=== PATIENT | female | born 1960 | race Hispanic/Latino ===

== ENCOUNTER 2017-08-14 08:36 | Emergency (ER) | payer BC ==
[2017-08-14 09:01] VITALS: TEMP 98; O2SAT 98
[2017-08-14] MEDS ORDERED: Sodium Chloride 0.9% 1,000 ML IV STA ×2 (09:02→10:29)
[2017-08-14 10:03] LABS: BASO # 0.02 K/mm3 (0.0-2.0); BASO % 0.2 % (0.0-3.0); EOS # 0.1 (0.0-0.7); EOS % 0.5 % (1.5-5.0); GRAN # 8.02 (1.4-6.5); GRAN % 77.2 % (50.0-68.0); HEMOGLOBIN 13.8 g/dL (12.0-16.0); LYMPH # 1.7 (1.2-3.4); LYMPH % 16.5 % (22.0-35.0); MEAN CELL VOLUME 85.4 fl (80.0-105.0); MEAN CORPUSCULAR HEMOGLOBIN 29.7 pg (25.0-35.0); MEAN CORPUSCULAR HGB CONC 34.8 g/dl (31.0-37.0); MEAN PLATELET VOLUME 10.9 fl (7.0-11.0); MONO # 0.6 (0.1-0.6); MONO % 5.6 % (1.0-6.0); RBC 4.65 10^6/uL (3.5-6.1); RED CELL DISTRIBUTION WIDTH 12.1 % (11.5-14.5); WHITE BLOOD COUNT 10.4 10^3/ul (4.5-11.0)
[2017-08-14 10:05] LABS: VENOUS BLOOD GAS BASE EXCESS -0.2 mmol/L (0.0-2.0); VENOUS BLOOD GAS PO2 83 mm/Hg (30-55); VENOUS BLOOD PH 7.39 (7.32-7.43)
--- NOTE | 2017-08-14 10:06 | ED PDOC ---
Arrival/HPI - General Chief Complaint: High Blood Sugar Time Seen by Provider: 08/14/17 08:57 Historian: Patient - History of Present Illness Narrative History of Present Illness (Text): 08/14/17 10:00 56 year old female, who presents to the emergency department complaining of elevated blood sugar since this morning. Patient reports one day ago she went to see her PMD for a routine check up and this morning she received a call about her elevated sugar levels. Patient is also complaining of polyuria and polydipsia. Patient denies chest pain, shortness of breath, headache, abdominal pain, dysruia, hematuria, or other complaints. Time/Duration: Prior to Arrival Symptom Onset: Sudden Symptom Course: Unchanged Context: Home Past Medical History - Provider Review Nursing Documentation Reviewed: Yes - Infectious Disease Hx of Infectious Diseases: None - Reproductive Menopause: Yes - Cardiac Hx Cardiac Disorders: No - Pulmonary Hx Respiratory Disorders: No - Neurological Hx Neurological Disorder: No - HEENT Other/Comment: rt eye trigian surgery - Renal Hx Renal Disorder: No - Hematological/Oncological Hx Blood Disorders: No - Musculoskeletal/Rheumatological Hx Musculoskeletal Disorders: No - Psychiatric Hx Substance Use: No - Anesthesia Hx Anesthesia: No Family/Social History - Physician Review Nursing Documentation Reviewed: Yes Family/Social History: Diabetes Smoking Status: Current Some Days Smoker Hx Alcohol Use: Yes Frequency of alcohol use: Socially Hx Substance Use: No Allergies/Home Meds Allergies/Adverse Reactions: Allergies No Known Allergies Allergy (Verified 08/14/17 09:01) Home Medications: Home Meds Medication Instructions Recorded Confirmed No Known Home Med 08/14/17 08/14/17 Review of Systems - Physician Review All systems were reviewed & negative as marked: Yes - Review of Systems Respiratory: absent: SOB Cardiovascular: absent: Chest Pain Gastrointestinal: absent: Abdominal Pain Endocrine: Polyuria, Polydipsia Hemo/Lymphatic: Other (elevated sugar) Physical Exam Vital Signs Reviewed: Yes Vital Signs Temp Pulse Resp BP Pulse Ox 08/14/17 12:47 98 F 62 18 161/81 H 98 08/14/17 10:37 78 18 146/72 98 08/14/17 08:54 98 F 58 L 16 136/89 98 Temperature: Afebrile Blood Pressure: Normal Pulse: Bradycardic Respiratory Rate: Normal Appearance: Positive for: Well-Appearing, Non-Toxic, Comfortable Pain Distress: None Mental Status: Positive for: Alert and Oriented X 3 - Systems Exam Head: Present: Atraumatic, Normocephalic Pupils: Present: PERRL Extroacular Muscles: Present: EOMI Conjunctiva: Present: Normal Respiratory/Chest: Present: Clear to Auscultation, Good Air Exchange. No: Respiratory Distress, Accessory Muscle Use, Wheezes, Rales, Retracting, Rhonchi , Tachypneic Cardiovascular: Present: Regular Rate and Rhythm, Normal S1, S2. No: Murmurs Abdomen: Present: Normal Bowel Sounds. No: Tenderness, Distention, Peritoneal Signs, Rebound, Guarding Neurological: Present: GCS=15, CN II-XII Intact, Speech Normal Skin: Present: Warm, Dry, Normal Color. No: Rashes Psychiatric: Present: Alert, Oriented x 3, Normal Insight, Normal Concentration Medical Decision Making ED Course and Treatment: 08/14/17 Impression: 56 year old female with unremarkable physical exam complaining of elevated sugar levels Plan: -- Labs -- Urinalysis -- Sodium Chloride -- Reassess and disposition Progress Notes: - Lab Interpretations Lab Results: 08/14/17 09:34 08/14/17 09:34 Lab Results 08/14/17 12:16: POC Glucose (mg/dL) 200 H 08/14/17 10:57: POC Glucose (mg/dL) 320 H 08/14/17 09:34: Sodium 136, Chloride 97 L, Potassium 4.4, Carbon Dioxide 24, Anion Gap 19, BUN 14, Creatinine 0.8, Est GFR ( Amer) > 60, Est GFR (Non- Af Amer) > 60, Random Glucose 464 H*, Calcium 9.2, Total Bilirubin 0.4, AST 38 H , ALT 40, Alkaline Phosphatase 130 H, Total Protein 7.5, Albumin 4.4, Globulin 3.0, Albumin/Globulin Ratio 1.5 08/14/17 09:34: pO2 83 H, VBG pH 7.39, VBG pCO2 41.0, VBG HCO3 24.8, VBG Total CO2 26.1, VBG O2 Sat (Calc) 98.1 H, VBG Base Excess -0.2 L, VBG Potassium 5.0, Sodium 131.0 L, Chloride 94.0 L, Glucose 501 H*, Lactate 3.4 H, FiO2 21.0, Venous Blood Potassium 5.0 08/14/17 09:34: WBC 10.4, RBC 4.65, Hgb 13.8, Hct 39.7, MCV 85.4, MCH 29.7, MCHC 34.8, RDW 12.1, Plt Count 262, MPV 10.9, Gran % 77.2 H, Lymph % (Auto) 16.5 L, Woodruff % (Auto) 5.6, Eos % (Auto) 0.5 L, Baso % (Auto) 0.2, Gran # 8.02 H , Lymph # (Auto) 1.7, Woodruff # (Auto) 0.6, Eos # (Auto) 0.1, Baso # (Auto) 0.02 08/14/17 09:04: POC Glucose (mg/dL) 478 H* I have reviewed the lab results: Yes - Medication Orders Current Medication Orders: Discontinued Medications Sodium Chloride (Sodium Chloride 0.9%) 1,000 mls @ 999 mls/hr IV .Q1H1M STA Stop: 08/14/17 10:02 Last Admin: 08/14/17 09:50 Dose: 999 mls/hr eMAR Start Stop Document 08/14/17 09:50 [facility] (Rec: 08/14/17 09:50 [facility] [id number]) Intravenous Solution Start Date 08/14/17 Start Time 09:50 End Date 08/14/17 End time 10:50 Total Infusion Time 60 Sodium Chloride (Sodium Chloride 0.9%) 1,000 mls @ 999 mls/hr IV .Q1H1M STA Stop: 08/14/17 11:29 Last Admin: 08/14/17 11:10 Dose: 999 mls/hr eMAR Start Stop Document 08/14/17 11:10 [facility] (Rec: 08/14/17 11:10 [facility] [id number]) Intravenous Solution Start Date 08/14/17 Start Time 11:10 End Date 08/14/17 End time 12:10 Total Infusion Time 60 Insulin Human Regular (Humulin R) 4 units IVP STAT STA Stop: 08/14/17 10:29 Last Admin: 08/14/17 11:04 Dose: 4 units MAR Blood Glucose Document 08/14/17 11:04 [facility] (Rec: 08/14/17 11:04 [facility] [id number]) Blood Glucose Finger Stick Blood Glucose (70-120) 320 IVP Administration Document 08/14/17 11:04 [facility] (Rec: 08/14/17 11:04 [facility] [id number]) Charges for Administration # of IVP Administrations 1 - Scribe Statement The provider has reviewed the documentation as recorded by the Scribe Brie Salazar Provider Scribe Attestation: All medical record entries made by the Scribe were at my direction and personally dictated by me. I have reviewed the chart and agree that the record accurately reflects my personal performance of the history, physical exam, medical decision making, and the department course for this patient. I have also personally directed, reviewed, and agree with the discharge instructions and disposition. Disposition/Present on Arrival - Present on Arrival Any Indicators Present on Arrival: Yes History of DVT/PE: No History of Uncontrolled Diabetes: No Urinary Catheter: No History of Decub. Ulcer: No History Surgical Site Infection Following: None - Disposition Have Diagnosis and Disposition been Completed?: Yes Diagnosis: New onset type 2 diabetes mellitus Disposition: HOME/ ROUTINE Disposition Time: 10:30 Condition: IMPROVED Discharge Instructions (ExitCare): Type 2 Diabetes, Diabetes Diet , Diabetic Meal Planning Additional Instructions: Thank you for letting us take care of you today. The emergency medical care you received today was directed at your acute symptoms. If you were prescribed any medication, please fill it and take as directed. It may take several days for your symptoms to resolve. Return to the Emergency Department if your symptoms worsen, do not improve, or if you have any other problems. Please contact your doctor or call one of the physicians/clinics you have been referred to that are listed on the Patient Visit Information form that is included in your discharge packet. Bring any paperwork you were given at discharge with you along with any medications you are taking to your follow up visit. Our treatment cannot replace ongoing medical care by a primary care provider (PCP) outside of the emergency department. Thank you for allowing the [facility] team to be part of your care today. Follow up with Dr. Costa today. He is sending you a prescription to the pharmacy today. Referrals: Martín Costa MD [Primary Care Provider] - Follow up with primary Forms: [employer] (Romanian)
[2017-08-14 10:23] LABS: ALB/GLOB RATIO 1.5 (1.1-1.8); ALBUMIN 4.4 g/dL (3.0-4.8); ALT/SGPT 40 U/L (7-56); AST/SGOT 38 U/L (14-36); BLOOD UREA NITROGEN 14 mg/dL (7-21); CALCIUM 9.2 mg/dL (8.4-10.5); GFR AFRICAN-AMERICAN > 60; GFR NON-AFRICAN AMERICAN > 60
[2017-08-14] MEDS ORDERED: Insulin Regular 1 UNITS/0.01 ML ML IVP STA (10:28)
[2017-08-14 11:12] VITALS: RESP 18
[2017-08-14 12:49] VITALS: BP 161/81; PULSE 62
== END 2017-08-14 12:49 | disposition home or self-care (01) ==
LOC: ED 08:36
DX: E11.9 Type 2 diabetes mellitus without complications (principal); F17.200 Nicotine dependence, unspecified, uncomplicated
CPT/HCPCS: 80053; 82803; 82948; 85025; 87086; 96361; 96374; 99283; J7040